=== PATIENT | male | born 1985 | race Caucasian/White ===

== ENCOUNTER 2020-04-05 14:00 | Inpatient (IN) | payer MEDICAID ==
[~2020-04-05] VITALS: Ht 154.9 cm; Wt 72.6 kg
[2020-04-05] MEDS ORDERED: IV NORMAL SALINE 1000 ML BAG IV ONE (14:30)
--- NOTE | 2020-04-05 14:40 | NUR ---
PT IS IN ROOM #1B. DR QURESHI EVALUATED THE PT.
[2020-04-05 14:43] LABS: BASOPHILS % (AUTO) 0.4 % (0.0-2.0); CREATININE 1.4 mg/dL (0.6-1.3); EOSINOPHILS # (AUTO) 0.2 K/uL (0.0-0.7); EOSINOPHILS % (AUTO) 2.3 % (0.0-7.0); HEMATOCRIT 53.9 % (36.7-47.1); HEMOGLOBIN 18.7 g/dL (12.5-16.3); LYMPHOCYTES # (AUTO) 2.2 K/uL (20.0-40.0); LYMPHOCYTES % (AUTO) 20.4 % (20.5-51.5); MEAN CORPUSCULAR HEMOGLOBIN 30.9 uug (23.8-33.4); MEAN CORPUSCULAR HGB CONC 35 g/dL (32.5-36.3); MEAN CORPUSCULAR VOLUME 89.3 fL (73.0-96.2); MONOCYTES # (AUTO) 0.9 K/uL (2.0-10.0); NEUTROPHILS # (AUTO) 7.5 K/uL (1.8-8.9); NEUTROPHILS % (AUTO) 68.9 % (38.5-71.5); PLATELET COUNT (AUTO) 288 K/uL (152-348); POTASSIUM 3.6 mmol/L (3.5-5.1); RED BLOOD CELL COUNT(AUTO) 6.04 MIL/uL (4.06-5.63); WHITE BLOOD COUNT (AUTO) 10.9 K/uL (3.6-10.2)
[2020-04-05 14:55] LABS: BILIRUBIN,DIRECT 0.2 mg/dL (0.0-0.2); BILIRUBIN,TOTAL 0.9 mg/dL (0.2-1.0); TOTAL PROTEIN, SERUM 8.4 g/dL (6.4-8.2)
[2020-04-05] MEDS ORDERED: SWABABLE VALVE TRANSFER SET EA MC ONE (15:10)
[2020-04-05] MEDS ORDERED: IV NORMAL SALINE 250 ML IV ONE (15:10)
[2020-04-05] MEDS ORDERED: IOHEXOL 350 100 ML INFUS..BTL ONE (15:10)
[2020-04-05] MEDS ORDERED: HEPARIN/D5W DRIP 500 ML IV ONE (16:00)
[2020-04-05] MEDS ORDERED: HEPARIN SODIUM,PORCINE 5,000 UNITS/ML VIAL IV ONE (16:00)
[2020-04-05] MEDS ORDERED: HEPARIN SODIUM,PORCINE 5,000 UNITS/ML VIAL ONE (16:10)
[2020-04-05] MEDS ORDERED: HEPARIN/D5W DRIP 500 ML ONE (16:11)
--- NOTE | 2020-04-05 16:41 | NUR ---
report was given to broomcorn sorter Joleen. pt was transfered to room #1 ccu.
[2020-04-05 17:03] VITALS: BP 132/92
[2020-04-05] MEDS ORDERED: ONDANSETRON 4 MG/2 ML VIAL IV PRN (17:15)
[2020-04-05] MEDS ORDERED: ACETAMINOPHEN 325 MG TABLET PO PRN (17:15)
[2020-04-05] MEDS ORDERED: MORPHINE SULFATE 2 MG/1 ML DISP.SYRIN IV PRN (17:15)
[2020-04-05] MEDS ORDERED: LEVALBUTEROL HCL NEB 0.63 MG/3 ML NEBU NEB PRN (17:15)
--- NOTE | 2020-04-05 17:37 | NUR ---
Patient in from E[facility] via [facility], Pt. AAOx4. vitals stable Hrof 106 sbp of 132/92, rr 15, temp of 99.1 Patient ambulatory with steady gait able to transfer himself from [facility] to bed. IV to RAC G18 and infusing with heparin at 1250unit/hr. Receiving physician called to be notified.
[2020-04-05] MEDS ORDERED: HEPARIN/D5W DRIP 500 ML IV PRN (17:45)
[2020-04-05] MEDS: HEPARIN/D5W DRIP 500 ML IV PRN (17:49)
--- NOTE | 2020-04-05 19:10 | NUR ---
received patient awake , oriented , able to follow command , heparin running at 1250 units on RAC , oxygen on 2l nc , denies pain at this time ,
[2020-04-05 20:00] VITALS: BP 136/86
--- NOTE | 2020-04-05 20:45 | NUR ---
dr kaiser is here at bedside , update given on patient's condition
--- NOTE | 2020-04-05 20:54 | NUR ---
spoke to daughter , update given on patient's status with patient's consent
[2020-04-05 21:00] VITALS: BP 132/74
[2020-04-05 22:00] VITALS: BP 116/75
[2020-04-05 23:00] VITALS: BP 116/72
[2020-04-05] MEDS ORDERED: HEPARIN SODIUM,PORCINE 5,000 UNITS/ML VIAL IV SCH (23:45)
[2020-04-06] VITALS (23 sets, daily range): BP systolic 103–136; BP diastolic 60–90
--- NOTE | 2020-04-06 02:12 | NUR ---
PATIENT WILL BE ABLE TO EXPRESS LOCATION AND PAIN LEVEL , MAINTAIN AN ACCEPTABLE LEVEL OF PAIN DURING HOSPITALIZATION Addendum: 04/06/20 at 0212 lynn LAUGHLIN RN Amended: Lex added. Addendum: 04/06/20 at 0214 lynn LAUGHLIN RN Amended: Lex mendoza.
--- NOTE | 2020-04-06 02:14 | NUR ---
PATIENT WILL BE ABLE TO VERBALIZE UNDERSTANDING OF NEEDING TO GET LAB WORK SPECIFICALLY PTT FOR HEPARIN TITRATION Addendum: 04/06/20 at 0214 by SUNI LAUGHLIN RN Amended: Links added.
--- NOTE | 2020-04-06 02:15 | NUR ---
WILL BE ABLE TO TOLERATE AND MAINTAIN OXTGEN SATURATION GREATER THAN > 92 % ON THE CURRENT OXYGEN Addendum: 04/06/20 at 0215 lynn LAUGHLIN RN Amended: Lex added. Addendum: 04/06/20 at 0216 lynn LAUGHLIN RN Amended: Lex mendoza.
--- NOTE | 2020-04-06 02:16 | NUR ---
WILL BE ABLE TO VERBALIZE PAIN LOCATION , MEDICATION REGIME DURING HOSPITALIZATION Addendum: 04/06/20 at 0216 by SUNI LAUGHLIN RN Amended: Links added.
--- NOTE | 2020-04-06 02:19 | NUR ---
WILL BE ABLE TO KEEP CALM AND COOPERATIVE AND ACTIVE ON PLAN OF CARE WITHOUT NEEDING TO TAKE ANY MEDICATION FOR SLEEP OR PAIN Addendum: 04/06/20 at 0219 by SUNI LAUGHLIN RN Amended: Links added.
--- NOTE | 2020-04-06 04:00 | NUR ---
SLEEPING COMFORTABLY , NO DISTRESS , AROUSABLE TO LIGHT TOUCH , NO FEVER , NO COUGHING NOTED , OXYGEN 2L NC
[2020-04-06 05:15] LABS: BASOPHILS % (AUTO) 0.3 % (0.0-2.0); EOSINOPHILS # (AUTO) 0.4 K/uL (0.0-0.7); EOSINOPHILS % (AUTO) 5.2 % (0.0-7.0); HEMATOCRIT 47.8 % (36.7-47.1); HEMOGLOBIN 16.2 g/dL (12.5-16.3); LYMPHOCYTES # (AUTO) 2.7 K/uL (20.0-40.0); LYMPHOCYTES % (AUTO) 33.1 % (20.5-51.5); MEAN CORPUSCULAR HEMOGLOBIN 30.6 uug (23.8-33.4); MEAN CORPUSCULAR HGB CONC 34 g/dL (32.5-36.3); MEAN CORPUSCULAR VOLUME 90.3 fL (73.0-96.2); MONOCYTES # (AUTO) 0.6 K/uL (2.0-10.0); MONOCYTES % (AUTO) 7.5 % (0.0-11.0); NEUTROPHILS # (AUTO) 4.5 K/uL (1.8-8.9); NEUTROPHILS % (AUTO) 53.9 % (38.5-71.5); PLATELET COUNT (AUTO) 250 K/uL (152-348); WHITE BLOOD COUNT (AUTO) 8.3 K/uL (3.6-10.2)
[2020-04-06 05:33] LABS: BILIRUBIN,TOTAL 0.7 mg/dL (0.2-1.0); CREATININE 1.2 mg/dL (0.6-1.3); PHOSPHOROUS 4.1 mg/dL (2.5-4.9); TOTAL PROTEIN, SERUM 6.9 g/dL (6.4-8.2)
[2020-04-06 05:44] LABS: THYROID STIMULATING HORMONE 4.067 mIU/mL (0.358-3.740)
--- NOTE | 2020-04-06 06:00 | NUR ---
awake , able to follow command , no distress , heparin drip is currently on 1400 units , no change , latest ptt 63.8
[2020-04-06] MEDS ORDERED: METO25TA6 PO (06:55)
[2020-04-06] MEDS: PANTOPRAZOLE SODIUM 40 MG TABLET.DR PO SCH (07:21)
[2020-04-06 07:51] LABS: *AMPHETAMINE, URINE NEGATIVE (NEGATIVE); *BARBITURATE, URINE NEGATIVE (NEGATIVE); *CANNABINOID, URINE NEGATIVE (NEGATIVE); *COCCAINE, URINE NEGATIVE (NEGATIVE); *OPIATE, URINE NEGATIVE (NEGATIVE); *PHENCYCLIDINE SCREEN,URINE NEGATIVE (NEGATIVE)
--- NOTE | 2020-04-06 08:49 | NUR ---
patient with c/of 5/10 chest pain pt describing it as burning and radiating, at this time declining to have any pain medication, stating "If it continues or gets worse I'll ask you for it". Attending physician Dr. Hayes notified EKg done and He was notified of results. Will continue with care plan.
--- NOTE | 2020-04-06 11:45 | NUR ---
Attending physician Freddy Tena in the unit to see and examine patient, full report given orders to continue with care plan received.
[2020-04-06] MEDS: HEPARIN/D5W DRIP 500 ML IV PRN (11:47)
--- NOTE | 2020-04-06 19:10 | NUR ---
RECEIVED AWAKE , ABLE TO FOLLOW COMMAND, HEPARIN DRIP ON 1400 UNITS , RAC INTACT , COMPLAINED OF GENERALIZED PAIN , PAIN MEDICATION OFFERED AND ACCEPTED
[2020-04-06] MEDS: HYDROCODONE/APAP 5-325MG TABLET PO PRN (19:11)
[2020-04-06] MEDS: MUPIROCIN 2% OINT 22 GM TUBE NS SCH (20:42)
[2020-04-06] MEDS: EZETIMIBE 10 MG TABLET PO SCH (20:42)
[2020-04-06] MEDS: ATORVASTATIN 20 MG TABLET PO SCH (20:44)
--- NOTE | 2020-04-06 21:07 | NUR ---
will be able to verbalize pain location , and maintain acceptable level of pain Addendum: 04/06/20 at 2107 lynn LAUGHLIN RN Amended: Lex added. Addendum: 04/06/20 at 2123 by SUNI LAUGHLIN RN Amended: Lex added.
--- NOTE | 2020-04-06 21:23 | NUR ---
able to maintain oxygen saturation > 92 % on current oxygen 2l nc Addendum: 04/06/20 at 2123 by SUNI LAUGHLIN RN Amended: Links added.
--- NOTE | 2020-04-06 21:26 | NUR ---
able to verbalize signs and symptoms , and be free of pain and symptoms of pe Addendum: 04/06/20 at 2126 by SUNI LAUGHLIN RN Amended: Links added.
[2020-04-07] VITALS (16 sets, daily range): BP systolic 94–129; BP diastolic 60–84
[2020-04-07] MEDS: HEPARIN/D5W DRIP 500 ML IV PRN (04:42)
[2020-04-07 05:05] LABS: BASOPHILS % (AUTO) 0.6 % (0.0-2.0); EOSINOPHILS # (AUTO) 0.4 K/uL (0.0-0.7); EOSINOPHILS % (AUTO) 5.4 % (0.0-7.0); HEMATOCRIT 47.6 % (36.7-47.1); HEMOGLOBIN 16.4 g/dL (12.5-16.3); LYMPHOCYTES # (AUTO) 2.5 K/uL (20.0-40.0); LYMPHOCYTES % (AUTO) 34.1 % (20.5-51.5); MEAN CORPUSCULAR HGB CONC 35 g/dL (32.5-36.3); MEAN CORPUSCULAR VOLUME 89.7 fL (73.0-96.2); MONOCYTES # (AUTO) 0.5 K/uL (2.0-10.0); MONOCYTES % (AUTO) 7.2 % (0.0-11.0); NEUTROPHILS # (AUTO) 3.9 K/uL (1.8-8.9); NEUTROPHILS % (AUTO) 52.7 % (38.5-71.5); PLATELET COUNT (AUTO) 261 K/uL (152-348); WHITE BLOOD COUNT (AUTO) 7.4 K/uL (3.6-10.2)
[2020-04-07 05:17] LABS: BILIRUBIN,TOTAL 0.4 mg/dL (0.2-1.0); CREATININE 1.3 mg/dL (0.6-1.3); MAGNESIUM 1.9 mg/dL (1.8-2.4); PHOSPHOROUS 4.2 mg/dL (2.5-4.9); POTASSIUM 3.7 mmol/L (3.5-5.1)
[2020-04-07] MEDS ORDERED: ALBUTEROL SULFATE 1.25 MG/3 ML NEBU NEB PRN (07:45)
[2020-04-07] MEDS: PANTOPRAZOLE SODIUM 40 MG TABLET.DR PO SCH (07:49)
[2020-04-07] MEDS: MUPIROCIN 2% OINT 22 GM TUBE NS SCH ×2 (08:19→21:01)
--- NOTE | 2020-04-07 12:30 | NUR ---
Called Feroz LAST for report, awaiting for room to be cleaned, will call back when room available.
[2020-04-07] MEDS: APIXABAN 5 MG TABLET PO SCH ×2 (13:20→21:24)
--- NOTE | 2020-04-07 13:38 | NUR ---
Transferred patient to room 323 via WC no complications.
--- NOTE | 2020-04-07 13:39 | NUR ---
patient received from CCU, alert, oriented x4, verbally responsive, patient denied sob, comfortably watching TV, patient stated able to tolerate ambulating from bed to bathroom back and forth without sob, ROM active, lungs clear upon auscultation, no edema noted to extremities. no distress noted at this time.
--- NOTE | 2020-04-07 14:28 | NUR ---
teaching initiated to quiet smoking patient participated in teaching actively,verbalized understanding of it. patient stated he is ready to try quiet smoking, education material given to patient.
[2020-04-07] MEDS: HYDROCODONE/APAP 5-325MG TABLET PO PRN ×2 (16:47→21:26)
--- NOTE | 2020-04-07 17:45 | NUR ---
patient is alert, oriented x4, no sob, resp even nonlabored, skin warm and dry to touch, no distress noted, ambulatory, tolerating well.
--- NOTE | 2020-04-07 19:30 | NUR ---
Pt in bed, awake. Pt denies any SOB/CP. Pt c/o generalized pain at 5/10, will assess and check if PRN pain medication is available. V/S stable on room air. Afebrile. NSR on tele monitor. Safety measures in place. Call light within reach. Will continue with the plan of care.
--- NOTE | 2020-04-07 19:34 | NUR ---
report given to health center assistant
[2020-04-07] MEDS: EZETIMIBE 10 MG TABLET PO SCH (20:53)
[2020-04-07] MEDS: ATORVASTATIN 20 MG TABLET PO SCH (20:53)
[2020-04-08] VITALS: BP 114/68
[2020-04-08 04:00] VITALS: BP 111/78
[2020-04-08] MEDS: PANTOPRAZOLE SODIUM 40 MG TABLET.DR PO SCH (06:29)
--- NOTE | 2020-04-08 06:47 | NUR ---
Pt slept through the night. Pt awake and denies any acute distress or pain at this time. Pt had no episode of SOB/CP. V/S stable on room air. Sinus Jonathon 57 on tele monitor. Comfort care and needs attended. Pain managed effectively. Safety measures in place. Call light within reach. Will endorse to the oncoming nurse accordingly.
--- NOTE | 2020-04-08 08:00 | NUR ---
AWAKE ALERT AND VERBALLY RESPONSIVE, ORIENTED X3 C/O HEADACHE, NO NASEA OR VOMITING. WILL MEDICATE WITH PRN MEDS
--- NOTE | 2020-04-08 08:30 | NUR ---
HEADACHE RELIEVED 100%. SR ON MONITOR. CLOSELY MONITORED
--- NOTE | 2020-04-08 09:00 | NUR ---
SEEN BY DR ORANTES WITH DC PLAN HOME, HOME.
[2020-04-08] MEDS: HYDROCODONE/APAP 5-325MG TABLET PO PRN (09:08)
[2020-04-08] MEDS: MUPIROCIN 2% OINT 22 GM TUBE NS SCH (09:09)
[2020-04-08] MEDS: APIXABAN 5 MG TABLET PO SCH (09:09)
[2020-04-08] MEDS ORDERED: HYDR-4384 PO (10:54)
[2020-04-08] MEDS ORDERED: ATOR20TA PO (10:54)
[2020-04-08] MEDS ORDERED: APIX5TAB PO ×2 (10:54)
[2020-04-08] MEDS ORDERED: EZET10TA15 PO (10:54)
[2020-04-08 11:41] VITALS: BP 127/78
--- NOTE | 2020-04-08 12:40 | NUR ---
DISCHARGED HOME WITH MEDICATION PRESCRIPTION AND FOLLOW-UP INSTRUCTION WITH PCP.
== END 2020-04-08 12:45 | disposition home or self-care (01) | DRG 134 ==
LOC: ER 14:00 → CCU 16:46 → TELE3 04-07 13:36
PROVIDERS: ADMIT Internal Medicine; ATTEND Internal Medicine
DX: I26.94 Multiple subsegmental thrombotic pulmonary emboli without acute cor pulmonale (principal); N17.0 Acute kidney failure with tubular necrosis; E86.0 Dehydration; F17.210 Nicotine dependence, cigarettes, uncomplicated; E78.5 Hyperlipidemia, unspecified; K76.0 Fatty (change of) liver, not elsewhere classified; F10.10 Alcohol abuse, uncomplicated; Y90.9 Presence of alcohol in blood, level not specified; R73.9 Hyperglycemia, unspecified
CPT/HCPCS: 36415; 70030-TC; 71045; 71275; 80307; 83735; 84100; 84443; 85025; 85730; 87086; 93005; 93307; A4663; G0378; J1644; J7030; J7050; Q9967; U0003-CS

== ENCOUNTER 2021-04-15 21:44 | Inpatient (IN) | payer MEDICAID ==
[~2021-04-15] VITALS: Ht 165.1 cm; Wt 75.7 kg
[~2021-04-15 21:44] MED LIST: APIX5TAB PO; ATOR20TA PO; EZET10TA15 PO; HYDR-4384 PO
--- NOTE | 2021-04-15 21:50 | NUR ---
Dr. Boland at bedside for MSE.
[2021-04-15] MEDS ORDERED: APIX5TAB4 PO (22:01)
--- NOTE | 2021-04-15 22:10 | NUR ---
Xray at bedside.
[2021-04-15] MEDS ORDERED: MORPHINE SULFATE 4 MG/1 ML DISP.SYRIN ONE (22:13)
[2021-04-15] MEDS ORDERED: ONDANSETRON 4 MG/2 ML VIAL ONE (22:14)
[2021-04-15] MEDS ORDERED: MORPHINE SULFATE 2 MG/1 ML DISP.SYRIN IV ONE (22:15)
[2021-04-15] MEDS ORDERED: IV NORMAL SALINE 1000 ML BAG IV ONE (22:15)
[2021-04-15] MEDS ORDERED: ONDANSETRON 4 MG/2 ML VIAL IV ONE (22:15)
[2021-04-15 22:22] LABS: CREATININE 1.2 mg/dL (0.6-1.3); POTASSIUM 4.3 mmol/L (3.5-5.1)
[2021-04-15 22:23] LABS: HEMATOCRIT 54.2 % (36.7-47.1); MEAN CORPUSCULAR HEMOGLOBIN 32.1 uug (23.8-33.4); MEAN CORPUSCULAR VOLUME 93.2 fL (73.0-96.2); PLATELET COUNT (AUTO) 220 K/uL (152-348)
[2021-04-15 22:34] LABS: BILIRUBIN,DIRECT 0.1 mg/dL (0.0-0.2); BILIRUBIN,TOTAL 0.9 mg/dL (0.2-1.0); TOTAL PROTEIN, SERUM 6.6 g/dL (6.4-8.2)
--- NOTE | 2021-04-15 22:36 | NUR ---
Patient's O2 on room air 88%, placed pt on O2 5L/min via nasal cannula, MD made aware.
[2021-04-15] MEDS ORDERED: IV NORMAL SALINE 250 ML IV ONE (22:44)
[2021-04-15] MEDS ORDERED: SWABABLE VALVE TRANSFER SET EA MC ONE (22:44)
[2021-04-15] MEDS ORDERED: IOHEXOL 350 100 ML INFUS..BTL ONE (22:44)
--- NOTE | 2021-04-15 22:48 | NUR ---
Pt out of ER for CT.
--- NOTE | 2021-04-15 23:05 | NUR ---
Pt back to ER from CT.
--- NOTE | 2021-04-15 23:08 | NUR ---
Respiratory at bedside.
--- NOTE | 2021-04-15 23:30 | NUR ---
After ABG and per ED DO BS orders pt placed on Respironics V-60 on settings of BIPAP 12/5, resp. rate 18 and FIO2-50% (Keep SpO2>92%). Pt appears to be tolerating BIPAP settings well. Pt to be monitored throughout the duration of the shift. Respironics V-60 alarm parameters have been checked and remain audible.
[2021-04-16] VITALS (13 sets, daily range): BP systolic 93–129; BP diastolic 63–97
[2021-04-16 00:02] LABS: ABG BASE EXCESS -4.1 mmol/L; ABG PCO2 30.8 mmHg (35.0-45.0); ABG PH 7.407 (7.350-7.450); ABG PO2 53.5 mmHg (75.0-100.0); ABG SITE LEFT RADIAL; ABG TOTAL HEMOGLOBIN 19.1 G/dL (13.5-18.0); COHb 0.2 % (0.5-1.5); MetHb 0.4 % (0.0-1.5); VENT MODE Nasal Cannula
--- NOTE | 2021-04-16 00:07 | NUR ---
Called [facility] to page Dr. Hall.
--- NOTE | 2021-04-16 00:09 | NUR ---
Dr. Boland on panel call with Dr. Hall. Patient accepted for admission to [facility], diagnosis: pulmonary embolism.
[2021-04-16] MEDS ORDERED: ONDANSETRON 4 MG/2 ML VIAL IV PRN (00:15)
[2021-04-16] MEDS ORDERED: HEPARIN/D5W DRIP 500 ML IV PRN (00:15)
[2021-04-16] MEDS ORDERED: hydrALAZINE HCL 20 MG/1 ML VIAL IV PRN (00:15)
[2021-04-16] MEDS ORDERED: HEPARIN SODIUM,PORCINE 5,000 UNITS/ML VIAL IV ONE (00:15)
[2021-04-16] MEDS ORDERED: LABETALOL HCL 100 MG/20 ML VIAL IV PRN (00:15)
[2021-04-16] MEDS ORDERED: HEPARIN SODIUM,PORCINE 5,000 UNITS/ML VIAL ONE (00:28)
[2021-04-16] MEDS ORDERED: HEPARIN/D5W DRIP 500 ML ONE (00:29)
--- NOTE | 2021-04-16 00:49 | NUR ---
Report given to Kim LAST [facility]U.
--- NOTE | 2021-04-16 01:30 | NUR ---
RECEIVED PATIENT AND REPORT FROM [place] [facility] NURSE , PATIENT IS AWAKE , ORIENTED ,ABLE TO FOLLOW COMMAND , ON BIPAP 15/5 18 50 % FIO2, NO LABORED BREATHING NOTED , ON HEPARIN DRIP OF NON ACS PROTOCOL , 1350 UNITS RUNNING ,IV INTACT RAC , STARTED RIGHT HND WITH 20 GA , EDUCATION AND UNIT ORIENTATION GIVEN ON THE PATIENT
--- NOTE | 2021-04-16 01:30 | NUR ---
RECEIVED PATIENT ON 07/02 18 FIO2 OF 30 % BIPAP
--- NOTE | 2021-04-16 03:17 | NUR ---
SLEEPING COMFORTABLY , EASILY AROUSABLE
[2021-04-16 06:15] LABS: ABG BASE EXCESS -1.7 mmol/L; ABG HCO3 24.2 mmol/L; ABG PCO2 44.7 mmHg (35.0-45.0); ABG PH 7.351 (7.350-7.450); ABG PO2 26.8 mmHg (75.0-100.0); ABG SITE RIGHT RADIAL; ABG TOTAL HEMOGLOBIN 17.5 G/dL (13.5-18.0); COHb 0.7 % (0.5-1.5); MetHb 0.5 % (0.0-1.5); O2Hb 39.1 % (94.0-97.0)
--- NOTE | 2021-04-16 06:29 | NUR ---
awake , oriented , bipap has been changed to 07/02 18 to 75 % fio2, heparin running , at 1350 unit , continent of urine and bowel , urine sample has been sent to the lab
--- NOTE | 2021-04-16 06:30 | NUR ---
Pt now on 100% FIO2 per ABG results.
--- NOTE | 2021-04-16 07:47 | NUR ---
Suspicion of Arterial Blood draw being venous blood due to patient saturation 100% on Bipap 70% fio2. Patient redrawn and noted to be over oxygenated. Patient titrated down to nasal cannula 6L.
[2021-04-16 08:14] LABS: ABG BASE EXCESS -3.7 mmol/L; ABG HCO3 20.6 mmol/L; ABG PCO2 35.9 mmHg (35.0-45.0); ABG PH 7.377 (7.350-7.450); ABG PO2 123.2 mmHg (75.0-100.0); ABG SITE RIGHT RADIAL; ABG TOTAL HEMOGLOBIN 17.8 G/dL (13.5-18.0); COHb 0.3 % (0.5-1.5); MetHb 0.4 % (0.0-1.5); O2Hb 97.8 % (94.0-97.0); VENT MODE BIPAP
[2021-04-16] MEDS: MORPHINE SULFATE 2 MG/1 ML DISP.SYRIN IV PRN ×2 (08:25→17:56)
--- NOTE | 2021-04-16 09:00 | NUR ---
Received call from lab stating that patients PTT is unable to be read and there is no coagulation on first and second draw either. Dr. Charles notified and awaiting orders. Dr. Charles discussed that patient should be transferred to [facility] and that he will contact case management to initiate transfer.
--- NOTE | 2021-04-16 09:59 | NUR ---
Report previously given to [facility] RN [facility]. Patient currently on Nasal cannula and saturation is 93%, tolerating well. Patient was able to eat 25% of breakfast without incident. Patient transferred to [facility] Floor room 311.
--- NOTE | 2021-04-16 10:00 | NUR ---
Pt is in no acute distress. Tele SNR no ectopy. PT alert and oriented x 4. Noted Edema on UE's +2 and LE's + 3. Discussed with pt importance of limiting fluids. Pt agreeable with plan of care. IV on right f/a #20 gauge intact. Call light is within reach.
[2021-04-16] MEDS: ENOXAPARIN SODIUM 80 MG/0.8 ML DISP.SYRIN SQ SCH ×2 (10:51→20:26)
--- NOTE | 2021-04-16 12:00 | NUR ---
RT RT WAS CALLED TO PLACE PT ON BIPAP. RT DID PT ASSESSMENT VITALS STABLE SPO2 95% ON 5LPM HR 78 B/P 102/79 TEMP 97.7. PT REFUSED TO BE PLACE ON BIPAP AT THIS TIME PT STATED HE FELT BETTER. PT AWARE BIPAP IS ON STAND BY. COLLECT ON DELIVERY CLERK IS AWARE WILL CONTINUE TO MONITOR PT.
--- NOTE | 2021-04-16 12:00 | NUR ---
Dr fonseca verified that no thrombectomy procedure is necessary. Pt's pain on chest managed with Tylenol and Morphine throughout shift. Lovenox given as ordered. Pt is in no acute distress. Call light is within reach. No weakness noted. No drift noted. Smile equal.
[2021-04-16] MEDS: ACETAMINOPHEN 325 MG TABLET PO PRN ×2 (13:51→23:30)
--- NOTE | 2021-04-16 18:42 | NUR ---
pt comfortable in bed. No radiating pain on arms. Call light is within reach.
--- NOTE | 2021-04-16 20:00 | NUR ---
Received patient lying in bed. Established rapport. AAOx4. No acute distress noted. All medications were given as ordered. Safety and comfort measures maintained. Call light within reach. Will continue to monitor.
--- NOTE | 2021-04-16 23:30 | NUR ---
Patient complained of mild pain. Tylenol was given as per patient's medication list. Will continue to monitor.
[2021-04-17] VITALS (7 sets, daily range): BP systolic 97–118; BP diastolic 64–83
[2021-04-17] MEDS: MORPHINE SULFATE 2 MG/1 ML DISP.SYRIN IV PRN ×4 (06:03→21:05)
[2021-04-17 06:21] LABS: MEAN CORPUSCULAR HEMOGLOBIN 31.7 uug (23.8-33.4); PLATELET COUNT (AUTO) 207 K/uL (152-348)
[2021-04-17 06:45] LABS: BILIRUBIN,TOTAL 0.9 mg/dL (0.2-1.0); CREATININE 1.2 mg/dL (0.6-1.3); PHOSPHOROUS 4.9 mg/dL (2.5-4.9); TOTAL PROTEIN, SERUM 6.2 g/dL (6.4-8.2)
[2021-04-17] MEDS: ACETAMINOPHEN 325 MG TABLET PO PRN (07:49)
[2021-04-17] MEDS: ENOXAPARIN SODIUM 80 MG/0.8 ML DISP.SYRIN SQ SCH ×2 (07:50→20:33)
--- NOTE | 2021-04-17 08:00 | NUR ---
Discussed plan of care with patient for today. Instructed pt to limit fluid intake secondary to pt has edema on his ankle +1. Instructed to use IS x10 WA Q 1 hr. Pt able to properly return demonstrate proper use of IS. Tapered o2 to 4 liters will monitor patient. Educated pt on proper pain management to "NOT WAIT till 7-8/10 pain level" when asking for pain medication. Instrected pt to call when pain level is @ a 4/10 pain level. Pt agreeable with plans for today.
[2021-04-17] MEDS ORDERED: ALBU8.5H8 IH (11:56)
[2021-04-17] MEDS ORDERED: ALBUTEROL SULFATE 8 GM HFA.AER.AD IH PRN (12:00)
--- NOTE | 2021-04-17 14:43 | NUR ---
Notified Mary Jane alcantar report of DVT occlusion right leg. Pt tolerating o2 @ 4lit with sat of 95%. Pt has been using IS x 10 WA. Call light is within reach.
[2021-04-17] MEDS: ALBUTEROL SULFATE 2.5 MG/3 ML NEBU NEB PRN (17:40)
--- NOTE | 2021-04-17 18:26 | NUR ---
Pt had HHN NEB TX pt c/o SOB . PT states that NEBULIZER was effective. PT less SOB pt tolerating o2 @4 liters with saturation of 96%. PT comfortable.
--- NOTE | 2021-04-17 18:38 | NUR ---
Pt's pain managed with morphine and tylenol. PT has been using his IS as instructed. Pt intake of fluid for am shift 800cc with 500 urine output for day shift.
--- NOTE | 2021-04-17 19:35 | NUR ---
PATIENT ALERT ORIENTED, NO SOB NO CHEST PAIN, AT THIS TIME. PATIENT ON TELE MONITOR SINUS RHYTHM, VS/ WNL, CONT TO MONITOR.
--- NOTE | 2021-04-17 21:35 | NUR ---
PATIENT COMPLAIN OF PAIN ON CHEST AREA, GIVEN MORPHINE IV WITH EFFECTIVE RESULTS.
[2021-04-18] VITALS: BP 115/76
[2021-04-18 04:15] VITALS: BP 98/72
[2021-04-18 06:47] LABS: HEMATOCRIT 47.8 % (36.7-47.1); MEAN CORPUSCULAR HEMOGLOBIN 31.8 uug (23.8-33.4); PLATELET COUNT (AUTO) 213 K/uL (152-348)
--- NOTE | 2021-04-18 07:03 | NUR ---
PATIENT ASLEEP BUT AROUSABLE, NO SOB NO CHEST PAIN, NO COMPLAIN OF PAIN NOR DISCOMFORT, CONT TO MONITOR.
--- NOTE | 2021-04-18 08:00 | NUR ---
Discussed plan of care with patient for today. Instructed pt to limit fluid intake. Tapered o2 to 3 liters via n/c will monitor patient. Pt agreeable with plans for today.
[2021-04-18] MEDS: MORPHINE SULFATE 2 MG/1 ML DISP.SYRIN IV PRN ×2 (08:17→12:55)
[2021-04-18] MEDS: ENOXAPARIN SODIUM 80 MG/0.8 ML DISP.SYRIN SQ SCH ×2 (08:19→21:17)
[2021-04-18] MEDS: ALBUTEROL SULFATE 2.5 MG/3 ML NEBU NEB PRN ×2 (09:12→21:04)
[2021-04-18 12:00] VITALS: BP 99/74
[2021-04-18] MEDS: FAMOTIDINE 20 MG TABLET PO SCH (12:49)
--- NOTE | 2021-04-18 13:57 | NUR ---
[facility] saw pt ordered different specific labs that can be found in regular lab options under [facility]. Blue bypass for given with copy of misc orders to ANJEL Hannah.
--- NOTE | 2021-04-18 14:00 | NUR ---
PT tolerating o2 @ 2lit n/c with sat of 98%
[2021-04-18 16:00] VITALS: BP 100/75
[2021-04-18] MEDS: ACETAMINOPHEN 325 MG TABLET PO PRN (17:58)
[2021-04-18] MEDS ORDERED: MAGNESIUM CITRATE 296 ML BOTTLE PO ONE (18:15)
[2021-04-18] MEDS ORDERED: MIRALAX 17 GM POWD.PACK PO PRN (18:15)
[2021-04-18] MEDS: HYDROCODONE/APAP 5-325MG TABLET PO PRN ×2 (18:46→23:29)
--- NOTE | 2021-04-18 19:40 | NUR ---
o2 at r/a with sat of 93% pt has been using his IS. Encouraged pt to continue using his IS. pt agreeable with plan of care.
--- NOTE | 2021-04-18 19:45 | NUR ---
PATIENT ALERT ORIENTED, NO SOB NO CHEST PAIN, ON 1 LITER NC SAT WNL, NO COMPLAIN OF PAIN AT THIS TIME, TELE MONITOR SINUS RHYTHM AT THIS TIME, CONT PAIN MANAGEMENT, FAMILY AT BEDSIDE, CONT TO MONITOR.
[2021-04-18 20:06] VITALS: BP 111/80
[2021-04-19 00:04] VITALS: BP 91/69
[2021-04-19 04:22] VITALS: BP 102/80
[2021-04-19 05:59] LABS: HEMATOCRIT 47.7 % (36.7-47.1); MEAN CORPUSCULAR HEMOGLOBIN 31.7 uug (23.8-33.4); MEAN CORPUSCULAR VOLUME 94.5 fL (73.0-96.2); PLATELET COUNT (AUTO) 210 K/uL (152-348)
[2021-04-19 06:18] LABS: CREATININE 1.1 mg/dL (0.6-1.3); POTASSIUM 4.3 mmol/L (3.5-5.1)
--- NOTE | 2021-04-19 06:24 | NUR ---
PATIENT ASLEEP BUT AROUSABLE, NO SOB NO CHEST PAIN, TELE MONITOR SINUS RHYTHM AT THIS TIME. PATIENT ON 1 LITER O2 NC 91%, NO CONT TO MONITOR.
--- NOTE | 2021-04-19 07:58 | NUR ---
received awake and conversant. on 1 lpm nc no acute distress spo2 92%. denies pain or sob. sinus rhythm on tele monitor. safety measures in place. call light in reach
[2021-04-19] MEDS: FAMOTIDINE 20 MG TABLET PO SCH (08:30)
[2021-04-19] MEDS: ENOXAPARIN SODIUM 80 MG/0.8 ML DISP.SYRIN SQ SCH (08:32)
[2021-04-19] MEDS: HYDROCODONE/APAP 5-325MG TABLET PO PRN ×3 (09:02→21:27)
[2021-04-19] MEDS: ALBUTEROL SULFATE 2.5 MG/3 ML NEBU NEB PRN (11:30)
[2021-04-19 11:32] VITALS: BP 115/78
--- NOTE | 2021-04-19 12:06 | NUR ---
on room air, pt desaturated to 88%. put on 0.5 lpm nc and o2 went up to 90-91%. denies chest pain/sob. will cont to monitor.
--- NOTE | 2021-04-19 14:38 | NUR ---
Carlos wilson ok'd for pt to get norco ahead of schedule d/t c/o 04/07 chest pain. denies sob. no distress noted.
[2021-04-19 15:27] VITALS: BP 121/85
--- NOTE | 2021-04-19 15:27 | NUR ---
clarification: patient on 0.5 Lpm O2 at this time, spo2 94%. 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
--- NOTE | 2021-04-19 18:57 | NUR ---
alert and oriented, no resp distress. denies sob. safety measures in place. kept comfortable. needs attended.
--- NOTE | 2021-04-19 19:30 | NUR ---
RECEIVED PT AWAKE, ALERT AND ORIENTEDX4. PT IN NO ACUTE DISTRESS. IV INTACT. SAFETY AND COMFORT PROVIDED. WILL CONTINUE TO MONITOR.
[2021-04-19 20:00] VITALS: BP 108/73
[2021-04-19] MEDS: APIXABAN 5 MG TABLET PO SCH (20:31)
[2021-04-20] VITALS: BP 138/81
[2021-04-20 04:41] VITALS: BP 107/73
--- NOTE | 2021-04-20 05:28 | NUR ---
PT SLEPT COMFORTABLY. PT IN NO ACUTE DISTRESS. PRESCRIBED MEDICATION GIVEN AND PT TOLERATED IT WELL. PT GIVEN NORCO 5-325MG AT 2127H FOR PAIN. PT TOLERATED IT WELL. SAFETY AND COMFORT PROVIDED. WILL ENDORSE TO INCOMING NURSE FOR CONTINUITY OF CARE.
[2021-04-20 06:35] LABS: HEMATOCRIT 47.4 % (36.7-47.1); MEAN CORPUSCULAR HEMOGLOBIN 31.8 uug (23.8-33.4); PLATELET COUNT (AUTO) 209 K/uL (152-348)
[2021-04-20 07:05] LABS: CREATININE 1.1 mg/dL (0.6-1.3); POTASSIUM 4.8 mmol/L (3.5-5.1)
--- NOTE | 2021-04-20 07:30 | NUR ---
Patient received in bed, alert and oriented x4. NSR on monitor at this time. On .5L O2 via NC with no SOB or difficulties breathing noted. No acute distress noted at this time. Patient's right hand IV was a bit red and patient c/o slight pain at the sight. D/C'ed IV. Right AC IV patent with no redness or swelling noted at this time. Call light and personal belongings within easy reach. Will continue to monitor.
[2021-04-20 07:45] LABS: MAGNESIUM 2.2 mg/dL (1.8-2.4)
[2021-04-20] MEDS: FAMOTIDINE 20 MG TABLET PO SCH (09:01)
[2021-04-20] MEDS: APIXABAN 5 MG TABLET PO SCH (09:03)
[2021-04-20] MEDS: HYDROCODONE/APAP 5-325MG TABLET PO PRN (09:06)
[2021-04-20] MEDS ORDERED: APIX5TAB PO (10:46)
[2021-04-20] MEDS ORDERED: HYDR-3972 PO (10:46)
--- NOTE | 2021-04-20 11:00 | NUR ---
Tried to titrate patient off of O2. At RA at rest, oxygen saturation is falling below 88%. Put patient back on 1L O2 via NC.
[2021-04-20 11:56] VITALS: BP 126/91
[2021-04-20] MEDS ORDERED: ASPIRIN 81 MG TAB.CHEW PO SCH (12:00)
--- NOTE | 2021-04-20 14:20 | NUR ---
Patient discharged in satisfactory condition with all his belongings. Portable oxygen was delivered and patient educated on its use. 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 He expressed understanding.
[2021-04-21 12:07] LABS: PTT-LA 52.1 sec (0.0-51.9); THROMBIN TIME 21.8 sec (0.0-23.0)
[2021-04-22 04:06] LABS: PTT-LA MIX 46.6 sec (0.0-48.9)
[2021-04-24 11:06] LABS: HEXAGONAL PHASE PHOSPHOLIPID 0 sec (0-11)
[2021-04-24 11:33] LABS: LUPUS INTERPRETATION Comment: (.)
== END 2021-04-20 14:20 | disposition home or self-care (01) | DRG 134 ==
LOC: ER 21:49 → CCU 04-16 00:51 → TELE-TD3 04-16 10:35 → TELE3 04-17 14:42
PROVIDERS: ADMIT Nurse Practitioner Acute Care; ATTEND Nurse Practitioner Family
DX: I26.99 Other pulmonary embolism without acute cor pulmonale (principal); J96.01 Acute respiratory failure with hypoxia; I27.20 Pulmonary hypertension, unspecified; I82.431 Acute embolism and thrombosis of right popliteal vein; D75.1 Secondary polycythemia; I27.82 Chronic pulmonary embolism; Z86.718 Personal history of other venous thrombosis and embolism; Z91.19 Patient's noncompliance with other medical treatment and regimen; Z20.822 Contact with and (suspected) exposure to COVID-19; D68.69 Other thrombophilia; I51.7 Cardiomegaly; Z79.01 Long term (current) use of anticoagulants; Z87.891 Personal history of nicotine dependence
CPT/HCPCS: 36415; 36600; 70030-TC; 71045; 71275; 82668; 83735; 84100; 85025; 85305; 85610; 85613; 85651; 85730; 93005; 93307; 94640; 94660; 94664; A4663; A6209; G0378; J1644; J1650; J2270; J2405; J7030; J7050; Q9967